=== PATIENT | male | born 1990 | race Caucasian/White ===

== ENCOUNTER 2017-04-13 10:37 | Emergency (ER) | payer BC ==
--- NOTE | 2017-04-13 10:48 | Emergency Department Record ---
History of Present Illness - General Chief complaint: Rash Stated complaint: HALLIE SCHULTZ Time Seen by Provider: 04/13/17 10:39 Source: Patient Mode of Arrival: Ambulatory Limitations: No limitations - History of Present Illness Initial comments: 26 yo male presents with an itchy rash to both arms and now to his face. The onset was Saturday. No fever. No vision changes. No MARKOS or swelling of the lips, tongue or throat. No pus or drainage. MD complaint: Rash Location: Face, LUE, RUE Severity: Moderate Quality: Other (itches) Consistency: Constant Improves with: None Context: Other (Land scaper) Associated symptoms: Denies other symptoms Treatments Prior to Arrival: OTC topical medication - Related Data Previous Rx's Medication Instructions Recorded Prednisone [Prednisone 20Mg] 20 mg PO BID #10 tab 04/13/17 Allergies Allergy/AdvReac Type Severity Reaction Status Date / Time amoxicillin Allergy Severe HIVES Unverified 05/22/16 13:31 Penicillins Allergy Severe HIVES Unverified 05/22/16 13:31 sulfamethoxazole Allergy Intermediate sores Unverified 05/22/16 13:31 [From Bactrim] trimethoprim [From Bactrim] Allergy Intermediate sores Unverified 05/22/16 13:31 Review of Systems Constitutional: Denies: Chills, Fever Eyes: Denies: Eye discharge, Eye pain, Photophobia, Vision change ENT: Denies: Congestion, Ear pain, Throat pain Respiratory: Denies: Cough, Dyspnea Cardiovascular: Denies: Chest pain Endocrine: Denies: Fatigue Gastrointestinal: Denies: Abdominal pain, Diarrhea, Nausea, Vomiting Musculoskeletal: Denies: Arthralgia, Joint swelling, Myalgia Skin: Reports: As per HPI, Change in color, Rash. Denies: Bruising Neurological: Denies: Headache Psychiatric: Denies: Anxiety Hematological/Lymphatic: Denies: Easy bleeding, Easy bruising Physical Exam - General General Appearance: Alert, Oriented x3, Cooperative, No acute distress Limitations: No limitations - Head Head exam: Atraumatic, Normocephalic, Normal inspection Image of Face/Head: 1 - maculo papular rash consistent with contact dermatitis - Eye Eye exam: Normal appearance, PERRL, Periorbital tenderness (very slight on the left ). negative: Conjunctival injection, Periorbital swelling, Scleral icterus - ENT ENT exam: Normal exam, Mucous membranes moist Ear exam: Normal external inspection Nasal Exam: Normal inspection Mouth exam: Normal external inspection - Neck Neck exam: Normal inspection, Full ROM. negative: Tenderness - Respiratory Respiratory exam: Normal lung sounds bilaterally. negative: Respiratory distress - Cardiovascular Cardiovascular Exam: Regular rate, Normal rhythm, Normal heart sounds - GI/Abdominal GI/Abdominal exam: Soft. negative: Tenderness - Rectal Rectal exam: Deferred - exam: Deferred - Extremities Extremities exam: Full ROM, Normal capillary refill. negative: Normal inspection, Calf tenderness, Joint swelling, Pedal edema, Tenderness Image of Full Body: 1 - maculo papular rash consistent with contact dermatitis 2 - maculo papular rash consistent with contact dermatitis - Back Back exam: Reports: Normal inspection - Neurological Neurological exam: Alert, Oriented X3 - Psychiatric Psychiatric exam: Normal affect, Normal mood - Skin Skin exam: Rash Distribution of rash: Face, RUE, LUE Disposition Disposition: Discharge Clinical Impression: Contact dermatitis Qualifiers: Contact dermatitis type: allergic Contact dermatitis trigger: non-food plants Qualified Code(s): L23.7 - Allergic contact dermatitis due to plants, except food Disposition: Home, Self-Care Condition: (1) Good Instructions: Poison Bessie (ED) Additional Instructions: Return if fever, pain, drainage, short of breath or any new concerns consider over the counter Zanfel as well Prescriptions: Prednisone [Prednisone 20Mg] 20 mg PO BID #10 tab Forms: Patient Portal Access Time of Disposition: 10:45 Quality - Quality Measures Quality Measures: N/A - Blood Pressure Screening Blood Pressure Classification: Pre-Hypertensive BP Reading Systolic Measurement: 123 Diastolic Measurement: 72 Screening for High Blood Pressure: < Pre-Hypertensive BP, F/U Documented > [ [id number]] Pre-Hypertensive Follow-up Interventions: Follow-up with rescreen every year.
== END 2017-04-13 11:02 | disposition home or self-care (01) ==
LOC: ER 10:37
DX: L23.7 Allergic contact dermatitis due to plants, except food (principal)
CPT/HCPCS: 99282